=== PATIENT | female | born 1970 | race Caucasian/White ===

== ENCOUNTER 2017-06-20 18:49 | Emergency (ER) | payer MEDICARE ==
[~2017-06-20] VITALS: Ht 167.6 cm; Wt 88.6 kg
[~2017-06-20 18:49] MED LIST: ACE INHIBITOR; ACID1TAB7 PO; ASPI-515 PO; CETI10CA PO; CLOP75TA52 PO; DRON5CAP15 PO; FLUC200T4 PO; INSU100C SQ-INSULIN; INSU100V8 SQ; KRILL OIL; METO10TA2 PO; METO25TA35 PO; METO5TAB57 PO; OXYC5SOL8 PO; PROBIOTIC; SULF-169 PO; SULF20OR7 PO; TRAM50TA2 PO; VANC1VIA3 PO
[2017-06-20 20:11] LABS: ASPARTATE AMINO TRANSFERASE 12 U/L (15-37); BLOOD UREA NITROGEN 32 mg/dL (7-18)
[2017-06-20 20:17] LABS: HEMATOCRIT 36.6 % (34.6-47.8); HEMOGLOBIN 12.2 g/dL (11.7-16.4); WHITE BLOOD COUNT 9.2 x10^3/uL (3.4-10)
[2017-06-20] MEDS ORDERED: NITROFURANTOIN (MACROBID) 100 MG CAPSULE PO ONE (21:00)
[2017-06-20] MEDS ORDERED: SODIUM CHLORIDE 0.9% 1,000ML IVBOLUS ONE (21:00)
[2017-06-20 23:02] VITALS: BP 151/84
== END 2017-06-20 23:37 | disposition home or self-care (01) ==
LOC: ED 22:52
DX: K58.0 Irritable bowel syndrome with diarrhea (principal); N30.00 Acute cystitis without hematuria; N28.9 Disorder of kidney and ureter, unspecified; E10.65 Type 1 diabetes mellitus with hyperglycemia; E10.40 Type 1 diabetes mellitus with diabetic neuropathy, unspecified; E10.21 Type 1 diabetes mellitus with diabetic nephropathy; I10 Essential (primary) hypertension
CPT/HCPCS: 36415; 80053; 81001; 82962; 85025; 87077; 87086; 87186; 96360; 96361; 99285; J7030

== ENCOUNTER 2017-09-19 18:54 | Emergency (ER) | payer MEDICARE ==
[~2017-09-19] VITALS: Ht 177.8 cm; Wt 75.0 kg
[2017-09-19] MEDS ORDERED: ONDANSETRON 2MG/ML, 2ML ONE (19:24)
[2017-09-19] MEDS ORDERED: MORPHINE SULFATE 4 MG/ML, 1ML ONE (19:24)
[2017-09-19 19:28] LABS: HEMATOCRIT 36.7 % (34.6-47.8); WHITE BLOOD COUNT 7.3 x10^3/uL (3.4-10)
[2017-09-19] MEDS ORDERED: MORPHINE SULFATE 4 MG/ML, 1ML IVPush PRN (19:30)
[2017-09-19] MEDS ORDERED: SODIUM CHLORIDE 0.9% 1,000ML IVBOLUS ONE (19:30)
[2017-09-19] MEDS ORDERED: ONDANSETRON 2MG/ML, 2ML IVPush ONE (19:30)
[2017-09-19] MEDS ORDERED: SODIUM CHLORIDE FLUSH 10ML SYR IVF ONE (19:30)
[2017-09-19 19:38] LABS: ASPARTATE AMINO TRANSFERASE 13 U/L (15-37); BLOOD UREA NITROGEN 44 mg/dL (7-18)
[2017-09-19 22:37] VITALS: BP 164/89
== END 2017-09-20 00:18 | disposition home or self-care (01) ==
LOC: ED 21:11
DX: K58.0 Irritable bowel syndrome with diarrhea (principal); R93.5 Abnormal findings on diagnostic imaging of other abdominal regions, including retroperitoneum
CPT/HCPCS: 36415; 74020; 74176; 80053; 81001; 83690; 84703; 85025; 87324; 89055; 96361; 96374; 96375; 99285; J2405; J7030

== ENCOUNTER → 2017-11-02 | Outpatient (CLI) | payer MEDICARE ==
[~2017-11-02] MED LIST changes: +IRON15TA3 PO
== END ==
LOC: PETCFH 08:10
PROVIDERS: ATTEND Internal Medicine
DX: R11.0 Nausea (principal)
CPT/HCPCS: 78264; A9541

== ENCOUNTER 2017-11-10 00:25 | Emergency (ER) | payer MEDICARE ==
[~2017-11-10] VITALS: Ht 162.6 cm; Wt 86.0 kg
[2017-11-10] MEDS ORDERED: HALOPERIDOL 5 MG/ML ONE (00:49)
[2017-11-10] MEDS ORDERED: METOCLOPRAMIDE 5 MG/ML, 2ML ONE (00:50)
[2017-11-10] MEDS ORDERED: DIPHENHYDRAMINE 50 MG/ML, 1ML ONE (00:50)
[2017-11-10 00:52] LABS: BASOPHILS # (AUTO) 0.07 x10^3/uL (0-0.1); BASOPHILS % (AUTO) 1 % (0-1); EOSINOPHILS # (AUTO) 0.41 x10^3/uL (0-0.4); EOSINOPHILS % (AUTO) 4 % (1-7); LYMPHOCYTES # (AUTO) 1.46 x10^3/uL (1-3.4); LYMPHOCYTES % (AUTO) 14 % (22-44); MD NO; MEAN CORPUSCULAR HEMOGLOBIN 27.7 pg (27.0-34.8); MEAN CORPUSCULAR HGB CONC 33.2 g/dL (32.4-35.8); MEAN CORPUSCULAR VOLUME 83.6 fL (80-100); MEAN PLATELET VOLUME 7.9 fL (7.4-10.4); MONOCYTES # (AUTO) 0.43 x10^3/uL (0.2-0.8); MONOCYTES % (AUTO) 4 % (2-9); NEUTROPHILS # (AUTO) 8.45 x10^3/uL (1.8-6.8); NEUTROPHILS % (AUTO) 78 % (42-75); PLATELET COUNT 301 x10^3/uL (130-400); RED BLOOD COUNT 4.05 x10^6/uL (3.82-5.3); RED CELL DISTRIBUTION WIDTH 13.1 % (9.6-15.2)
[2017-11-10] MEDS ORDERED: METOCLOPRAMIDE 5 MG/ML, 2ML IVPush ONE (01:00)
[2017-11-10] MEDS ORDERED: SODIUM CHLORIDE FLUSH 10ML SYR IVF ONE (01:00)
[2017-11-10] MEDS ORDERED: DIPHENHYDRAMINE 50 MG/ML, 1ML IVPush ONE (01:00)
[2017-11-10] MEDS ORDERED: SODIUM CHLORIDE 0.9% 1,000ML IVBOLUS ONE (01:00)
[2017-11-10] MEDS ORDERED: HALOPERIDOL 5 MG/ML IV ONE (01:00)
[2017-11-10 01:04] LABS: ALANINE AMINOTRANSFERASE 17 U/L (12-78); ALBUMIN 2.7 g/dL (3.4-5.0); ANION GAP 11 mmol/L (5-15); CALCIUM 7.9 mg/dL (8.5-10.1); CHLORIDE 110 mmol/L (98-107); CREATININE 1.36 mg/dL (0.55-1.02)
[2017-11-10 01:07] LABS: ALKALINE PHOSPHATASE 122 U/L (45-117); BILIRUBIN,TOTAL 0.1 mg/dL (0.2-1.0); TOTAL PROTEIN 6.9 g/dL (6.4-8.2)
[2017-11-10 03:59] VITALS: BP 157/82
== END 2017-11-10 04:01 | disposition home or self-care (01) ==
LOC: ED 00:28
DX: K31.84 Gastroparesis (principal); E86.0 Dehydration; I25.10 Atherosclerotic heart disease of native coronary artery without angina pectoris; I10 Essential (primary) hypertension; I25.2 Old myocardial infarction; Z86.73 Personal history of transient ischemic attack (TIA), and cerebral infarction without residual deficits; Z91.040 Latex allergy status
CPT/HCPCS: 36415; 80053; 83690; 85025; 96361; 96374; 96375; 99285; J1200; J1630; J2765; J7030

== ENCOUNTER 2018-02-08 00:31 | Inpatient (IN) | payer MEDICARE, MEDICAID ==
[~2018-02-08] VITALS: Ht 157.5 cm; Wt 87.0 kg
[~2018-02-08 00:31] MED LIST changes: +INSU100C5 SQ-INSULIN
[2018-02-08 00:54] LABS: BASOPHILS # (AUTO) 0.05 x10^3/uL (0-0.1); BASOPHILS % (AUTO) 1 % (0-1); EOSINOPHILS # (AUTO) 1.09 x10^3/uL (0-0.4); EOSINOPHILS % (AUTO) 11 % (1-7); LYMPHOCYTES # (AUTO) 1.45 x10^3/uL (1-3.4); LYMPHOCYTES % (AUTO) 15 % (22-44); MD NO; MEAN CORPUSCULAR HEMOGLOBIN 27.7 pg (27.0-34.8); MEAN CORPUSCULAR HGB CONC 32.9 g/dL (32.4-35.8); MEAN CORPUSCULAR VOLUME 84.3 fL (80-100); MEAN PLATELET VOLUME 8.1 fL (7.4-10.4); MONOCYTES # (AUTO) 0.56 x10^3/uL (0.2-0.8); MONOCYTES % (AUTO) 6 % (2-9); NEUTROPHILS % (AUTO) 69 % (42-75); PLATELET COUNT 286 x10^3/uL (130-400); RED BLOOD COUNT 3.86 x10^6/uL (3.82-5.3); RED CELL DISTRIBUTION WIDTH 14.1 % (9.6-15.2)
[2018-02-08] MEDS ORDERED: KETOROLAC 30 MG/1 ML IVPush ONE (01:00)
[2018-02-08] MEDS ORDERED: PROMETHAZINE 25 MG/ML, 1ML IM ONE (01:00)
[2018-02-08] MEDS ORDERED: SODIUM CHLORIDE FLUSH 10ML SYR IVF ONE (01:00)
[2018-02-08] MEDS ORDERED: SODIUM CHLORIDE 0.9% 1,000ML IVBOLUS ONE ×2 (01:00→05:00)
[2018-02-08 01:06] LABS: ALANINE AMINOTRANSFERASE 18 U/L (12-78); ALBUMIN 2.5 g/dL (3.4-5.0); ANION GAP 10 mmol/L (5-15); CHLORIDE 115 mmol/L (98-107); CREATININE 1.76 mg/dL (0.55-1.02)
[2018-02-08 01:11] LABS: ALKALINE PHOSPHATASE 125 U/L (45-117); BILIRUBIN,TOTAL 0.2 mg/dL (0.2-1.0); TOTAL PROTEIN 6.4 g/dL (6.4-8.2)
[2018-02-08] MEDS ORDERED: KETOROLAC 30 MG/1 ML ONE (02:22)
[2018-02-08] MEDS ORDERED: PROMETHAZINE 25 MG/ML, 1ML ONE (02:22)
[2018-02-08 03:43] VITALS: BP 132/75
[2018-02-08] MEDS ORDERED: DEXTROSE 4 GM TAB.CHEW PO PRN (05:00)
[2018-02-08] MEDS ORDERED: morphine SULFATE 10 MG/ML, 1ML IVPush PRN (05:00)
[2018-02-08] MEDS ORDERED: LABETALOL 5MG/ML, 20ML IVPush PRN (05:00)
[2018-02-08] MEDS ORDERED: GLUCAGON 1 MG IM PRN (05:00)
[2018-02-08] MEDS ORDERED: DEXTROSE 50%, 50ML SYRINGE IVPush PRN (05:00)
[2018-02-08] MEDS ORDERED: ONDANSETRON ODT 4 MG PO PRN (05:00)
[2018-02-08] MEDS ORDERED: DIPHENHYDRAMINE 25 MG CAPSULE PO PRN (05:00)
[2018-02-08 06:19] LABS: CHLORIDE 115 mmol/L (98-107)
[2018-02-08 06:20] LABS: ACETONE, SERUM Negative (Negative)
[2018-02-08 06:22] LABS: HEMOGLOBIN A1C 7.2 % (4.2-6.3)
[2018-02-08 06:30] LABS: CALCIUM 7.5 mg/dL (8.5-10.1); CREATININE 1.72 mg/dL (0.55-1.02)
[2018-02-08 06:38] LABS: ANION GAP 10 mmol/L (5-15)
[2018-02-08 06:53] VITALS: BP 114/72
[2018-02-08] MEDS: INSULIN LISPRO 100 UNITS/ML, PEN SQ-INSULIN SCH ×4 (07:00→20:38)
[2018-02-08] MEDS: IRON CARBONYL PO SCH (09:00)
[2018-02-08] MEDS: SODIUM CHLORIDE 0.9% 1,000 ML IV SCH ×3 (09:06→22:29)
[2018-02-08] MEDS: ASPIRIN 81 MG TABLET EC PO SCH (09:06)
[2018-02-08] MEDS: HEPARIN 5,000 UNITS/ML, 1ML SQ SCH ×2 (09:06→17:03)
[2018-02-08] MEDS: SODIUM CHLORIDE FLUSH 10ML SYR IVF SCH ×2 (09:07→20:38)
[2018-02-08 11:14] LABS: CULTURE INDICATED? YES; MICROSCOPIC INDICATED
[2018-02-08 11:49] LABS: ANION GAP 10 mmol/L (5-15); CALCIUM 7.4 mg/dL (8.5-10.1); CHLORIDE 118 mmol/L (98-107); CREATININE 1.64 mg/dL (0.55-1.02)
[2018-02-08 12:36] VITALS: BP 159/81
[2018-02-08] MEDS: HYDROcodone/APAP 5/325 TABLET PO PRN (20:38)
[2018-02-08] MEDS: CHOLESTYRAMINE LIGHT 4GM PACKET PO SCH (20:38)
[2018-02-08] MEDS ORDERED: INSULIN GLARGINE 100 UNITS/ML, PEN SQ-INSULIN SCH (21:00)
[2018-02-08 21:19] VITALS: BP 157/83
[2018-02-08] MEDS ORDERED: POLYETHYLENE GLYCOL 17 GM PACKET PO PRN (21:30)
[2018-02-08] MEDS: NYSTATIN CRM 15GM TP SCH (22:29)
[2018-02-08] MEDS: DOCUSATE 100 MG CAPSULE PO SCH (22:29)
[2018-02-09 00:23] VITALS: BP 141/83
[2018-02-09] MEDS: HEPARIN 5,000 UNITS/ML, 1ML SQ SCH ×3 (01:16→17:00)
[2018-02-09] MEDS: HYDROcodone/APAP 5/325 TABLET PO PRN ×2 (01:16→09:11)
[2018-02-09] MEDS: SODIUM CHLORIDE 0.9% 1,000 ML IV SCH (05:15)
[2018-02-09 05:54] LABS: ANION GAP 7 mmol/L (5-15); CALCIUM 7.6 mg/dL (8.5-10.1); CHLORIDE 122 mmol/L (98-107)
[2018-02-09 05:57] LABS: CREATININE 1.36 mg/dL (0.55-1.02)
[2018-02-09 06:17] LABS: ALBUMIN 2.2 g/dL (3.4-5.0)
[2018-02-09 06:20] LABS: BILIRUBIN,TOTAL 0.2 mg/dL (0.2-1.0); TOTAL PROTEIN 5.6 g/dL (6.4-8.2)
[2018-02-09 06:22] LABS: ALANINE AMINOTRANSFERASE 14 U/L (12-78); ALKALINE PHOSPHATASE 100 U/L (45-117)
[2018-02-09] MEDS: INSULIN LISPRO 100 UNITS/ML, PEN SQ-INSULIN SCH ×3 (07:00→16:00)
[2018-02-09] MEDS ORDERED: FLUCONAZOLE 100 MG TABLET PO ONE (07:30)
[2018-02-09 07:52] VITALS: BP 143/80
[2018-02-09] MEDS: IRON CARBONYL PO SCH (09:00)
[2018-02-09] MEDS: CHOLESTYRAMINE LIGHT 4GM PACKET PO SCH (09:10)
[2018-02-09] MEDS: NYSTATIN CRM 15GM TP SCH ×2 (09:10→16:00)
[2018-02-09] MEDS: DOCUSATE 100 MG CAPSULE PO SCH (09:11)
[2018-02-09] MEDS: ASPIRIN 81 MG TABLET EC PO SCH (09:11)
[2018-02-09] MEDS: SODIUM CHLORIDE FLUSH 10ML SYR IVF SCH (09:11)
[2018-02-09] MEDS ORDERED: NITROFURANTOIN (MACROBID) 100 MG CAPSULE PO SCH (12:00)
[2018-02-09 12:26] VITALS: BP 143/83
== END 2018-02-09 18:14 | disposition home or self-care (01) | DRG 682 ==
LOC: ED 01:10 → EDIP 02:23 → 4EST 03:34
PROVIDERS: ADMIT Family Medicine; ATTEND Family Medicine
DX: N17.0 Acute kidney failure with tubular necrosis (principal); E43 Unspecified severe protein-calorie malnutrition; K31.84 Gastroparesis; E10.43 Type 1 diabetes mellitus with diabetic autonomic (poly)neuropathy; I11.0 Hypertensive heart disease with heart failure; I50.9 Heart failure, unspecified; E86.0 Dehydration; I69.354 Hemiplegia and hemiparesis following cerebral infarction affecting left non-dominant side; N39.0 Urinary tract infection, site not specified; E10.65 Type 1 diabetes mellitus with hyperglycemia; D64.9 Anemia, unspecified; I25.10 Atherosclerotic heart disease of native coronary artery without angina pectoris; N80.9 Endometriosis, unspecified; R33.9 Retention of urine, unspecified; R19.00 Intra-abdominal and pelvic swelling, mass and lump, unspecified site; I25.2 Old myocardial infarction; Z79.4 Long term (current) use of insulin; Z86.14 Personal history of Methicillin resistant Staphylococcus aureus infection; Z89.429 Acquired absence of other toe(s), unspecified side; Z90.49 Acquired absence of other specified parts of digestive tract; Z80.0 Family history of malignant neoplasm of digestive organs
CPT/HCPCS: 36415; 76857; 80048; 80053; 81001; 82010; 82962; 83036; 83690; 83735; 84100; 84443; 84702; 84703; 85025; 87086; 99285; J1644; J1815; J7030

== ENCOUNTER 2018-02-15 02:36 | Emergency (ER) | payer MEDICARE, MEDICAID ==
[~2018-02-15] VITALS: Ht 177.8 cm; Wt 78.0 kg
[2018-02-15 03:16] LABS: BASOPHILS # (AUTO) 0.15 x10^3/uL (0-0.1); BASOPHILS % (AUTO) 2 % (0-1); EOSINOPHILS # (AUTO) 0.77 x10^3/uL (0-0.4); EOSINOPHILS % (AUTO) 9 % (1-7); LYMPHOCYTES # (AUTO) 1.57 x10^3/uL (1-3.4); LYMPHOCYTES % (AUTO) 19 % (22-44); MD NO; MEAN CORPUSCULAR HEMOGLOBIN 28.4 pg (27.0-34.8); MEAN CORPUSCULAR HGB CONC 33.5 g/dL (32.4-35.8); MEAN CORPUSCULAR VOLUME 84.5 fL (80-100); MEAN PLATELET VOLUME 8.5 fL (7.4-10.4); MONOCYTES # (AUTO) 0.36 x10^3/uL (0.2-0.8); MONOCYTES % (AUTO) 4 % (2-9); NEUTROPHILS % (AUTO) 65 % (42-75); PLATELET COUNT 282 x10^3/uL (130-400); RED BLOOD COUNT 3.77 x10^6/uL (3.82-5.3); RED CELL DISTRIBUTION WIDTH 14.2 % (9.6-15.2)
[2018-02-15 03:27] LABS: ALANINE AMINOTRANSFERASE 20 U/L (12-78); ALBUMIN 2.4 g/dL (3.4-5.0); ANION GAP 12 mmol/L (5-15); CHLORIDE 114 mmol/L (98-107); CREATININE 1.51 mg/dL (0.55-1.02)
[2018-02-15 03:29] LABS: ALKALINE PHOSPHATASE 132 U/L (45-117); BILIRUBIN,TOTAL 0.2 mg/dL (0.2-1.0); TOTAL PROTEIN 6.4 g/dL (6.4-8.2)
[2018-02-15 04:45] LABS: MICROSCOPIC INDICATED
[2018-02-15 04:50] LABS: CULTURE INDICATED? NO
[2018-02-15 05:04] LABS: OCCULT BLOOD NEGATIVE (NEGATIVE)
[2018-02-15 05:13] LABS: CLOSTRIDIUM DIFFICILE ANTIGEN NEGATIVE; CLOSTRIDIUM DIFFICILE TOXIN NEGATIVE (Negative)
[2018-02-15 06:53] VITALS: BP 161/89
== END 2018-02-15 07:42 | disposition home or self-care (01) ==
LOC: ED 05:33
DX: I12.9 Hypertensive chronic kidney disease with stage 1 through stage 4 chronic kidney disease, or unspecified chronic kidney disease (principal); E11.22 Type 2 diabetes mellitus with diabetic chronic kidney disease; N18.9 Chronic kidney disease, unspecified; R19.00 Intra-abdominal and pelvic swelling, mass and lump, unspecified site; I25.10 Atherosclerotic heart disease of native coronary artery without angina pectoris; I25.2 Old myocardial infarction; Z86.73 Personal history of transient ischemic attack (TIA), and cerebral infarction without residual deficits
CPT/HCPCS: 36415; 80053; 81001; 82272; 83690; 85025; 87324; 93005; 99285

== ENCOUNTER → 2018-03-25 | Outpatient (CLI) | payer MEDICAID, MEDICARE ==
[~2018-03-25] MED LIST changes: +INSU100V13 SC
[2018-03-25 12:04] LABS: BASOPHILS # (AUTO) 0.04 x10^3/uL (0-0.1); BASOPHILS % (AUTO) 1 % (0-1); EOSINOPHILS # (AUTO) 0.47 x10^3/uL (0-0.4); EOSINOPHILS % (AUTO) 6 % (1-7); LYMPHOCYTES # (AUTO) 1.76 x10^3/uL (1-3.4); LYMPHOCYTES % (AUTO) 23 % (22-44); MD NO; MEAN CORPUSCULAR HGB CONC 33.2 g/dL (32.4-35.8); MEAN CORPUSCULAR VOLUME 84.2 fL (80-100); MEAN PLATELET VOLUME 8.6 fL (7.4-10.4); MONOCYTES # (AUTO) 0.47 x10^3/uL (0.2-0.8); MONOCYTES % (AUTO) 6 % (2-9); NEUTROPHILS # (AUTO) 4.93 x10^3/uL (1.8-6.8); NEUTROPHILS % (AUTO) 64 % (42-75); PLATELET COUNT 291 x10^3/uL (130-400); RED BLOOD COUNT 4.19 x10^6/uL (3.82-5.3); RED CELL DISTRIBUTION WIDTH 13.4 % (9.6-15.2)
[2018-03-25 12:11] LABS: INTERNATIONAL NORMALIZED RATIO 0.94 (0.93-1.1); PROTHROMBIN TIME 9.7 Seconds (9.6-11.5)
[2018-03-25 12:15] LABS: ALBUMIN 2.9 g/dL (3.4-5.0); ANION GAP 7 mmol/L (5-15); CALCIUM 8.6 mg/dL (8.5-10.1); CHLORIDE 110 mmol/L (98-107)
[2018-03-25 12:21] LABS: ALANINE AMINOTRANSFERASE 19 U/L (12-78); ALKALINE PHOSPHATASE 134 U/L (45-117); BILIRUBIN,TOTAL 0.3 mg/dL (0.2-1.0); CREATININE 1.81 mg/dL (0.55-1.02); TOTAL PROTEIN 7.5 g/dL (6.4-8.2)
== END | disposition home or self-care (01) ==
LOC: STAR 10:54
PROVIDERS: ATTEND Specialist
DX: Z01.818 Encounter for other preprocedural examination (principal); N83.00 Follicular cyst of ovary, unspecified side
CPT/HCPCS: 36415; 71046; 80053; 84703; 85025; 85610; 85730

== ENCOUNTER 2018-03-29 10:52 | Inpatient (IN) | payer MEDICAID, MEDICARE ==
[~2018-03-29] VITALS: Ht 175.3 cm; Wt 91.4 kg
[2018-03-29] MEDS ORDERED: LACTATED RINGERS 1,000 ML IV SCH (11:41)
[2018-03-29] MEDS ORDERED: ACETAMINOPHEN 500 MG TABLET PO ONE (12:00)
[2018-03-29] MEDS ORDERED: OxyconTIN ER 10 MG TAB.ER PO ONE (12:00)
[2018-03-29] MEDS ORDERED: ONDANSETRON ODT 8 MG PO ONE (12:00)
[2018-03-29] MEDS: GABAPENTIN 300 MG CAPSULE PO ONE (12:40)
[2018-03-29] MEDS ORDERED: FENTANYL PF 250 MCG/5ML ONE ×2 (13:07→14:41)
[2018-03-29] MEDS ORDERED: MIDAZOLAM 1 MG/ML, 2ML ONE (13:07)
[2018-03-29] MEDS ORDERED: PHENYLEPHRINE 10 MG/ML ONE (13:10)
[2018-03-29] MEDS ORDERED: ROCURONIUM 10MG/ML,5ML ONE ×2 (13:10→14:40)
[2018-03-29] MEDS ORDERED: LIDOCAINE 2% 100MG/5ML SYRINGE ONE (13:10)
[2018-03-29] MEDS ORDERED: CEFOTETAN PMX 2GM/50ML 50 ML ONE (13:10)
[2018-03-29] MEDS ORDERED: PROPOFOL 10 MG/ML, 20ML ONE (13:10)
[2018-03-29] MEDS ORDERED: BUPIVACAINE/PF 0.25% ONE ×3 (17:43→18:52)
[2018-03-29] MEDS ORDERED: EPINEPHRINE 1 MG/ML, 1ML ONE (17:43)
[2018-03-29] MEDS ORDERED: LABETALOL 5MG/ML 40ML VIAL ONE (17:48)
[2018-03-29] MEDS ORDERED: DEXAMETHASONE 4 MG/ML, 1ML ONE (17:48)
[2018-03-29] MEDS ORDERED: FENTANYL PF 100 MCG/2ML ONE ×2 (18:41→20:11)
[2018-03-29] MEDS ORDERED: OXYcodone 5 MG/5 ML ORAL.SOL UDC PO PRN (20:00)
[2018-03-29] MEDS ORDERED: HYDROmorphone 1 MG/ML, 1ML IV PRN (20:00)
[2018-03-29] MEDS ORDERED: MEPERIDINE/PF 25MG/0.5ML IVPush PRN (20:00)
[2018-03-29] MEDS ORDERED: HALOPERIDOL 5 MG/ML IV PRN (20:00)
[2018-03-29] MEDS ORDERED: OXYcodone/APAP 5/325MG TABLET PO PRN (20:00)
[2018-03-29] MEDS ORDERED: LACTATED RINGERS 500 ML IVBOLUS ONE (20:00)
[2018-03-29] MEDS ORDERED: hydrALAzine 20 MG/ML, 1ML IV PRN (20:00)
[2018-03-29] MEDS ORDERED: PROMETHAZINE 25 MG/ML, 1ML IV PRN (20:00)
[2018-03-29] MEDS ORDERED: LORazepam 2 MG/ML, 1ML IVPush PRN (20:00)
[2018-03-29] MEDS ORDERED: ONDANSETRON 2MG/ML, 2ML IVPush PRN (20:00)
[2018-03-29] MEDS ORDERED: LABETALOL 5MG/ML, 20ML IV PRN (20:00)
[2018-03-29] MEDS ORDERED: hydrALAzine 20 MG/ML, 1ML ONE (20:01)
[2018-03-29] MEDS ORDERED: OXYcodone 5 MG/5 ML ORAL.SOL UDC ONE (20:12)
[2018-03-29] MEDS: FENTANYL PF 100 MCG/2ML IV PRN ×2 (20:13→20:33)
[2018-03-29] MEDS ORDERED: INSULIN GLARGINE 100 UNITS/ML, PEN SQ-INSULIN SCH (21:00)
[2018-03-30 00:08] VITALS: BP 125/71
[2018-03-30 04:23] VITALS: BP 122/81
[2018-03-30 05:04] LABS: BASOPHILS # (AUTO) 0.07 x10^3/uL (0-0.1); BASOPHILS % (AUTO) 1 % (0-1); EOSINOPHILS # (AUTO) 0.01 x10^3/uL (0-0.4); EOSINOPHILS % (AUTO) 0 % (1-7); LYMPHOCYTES # (AUTO) 0.54 x10^3/uL (1-3.4); LYMPHOCYTES % (AUTO) 4 % (22-44); MD NO; MEAN CORPUSCULAR HEMOGLOBIN 27.8 pg (27.0-34.8); MEAN CORPUSCULAR HGB CONC 32.9 g/dL (32.4-35.8); MEAN CORPUSCULAR VOLUME 84.6 fL (80-100); MEAN PLATELET VOLUME 8.7 fL (7.4-10.4); MONOCYTES # (AUTO) 0.52 x10^3/uL (0.2-0.8); MONOCYTES % (AUTO) 4 % (2-9); NEUTROPHILS % (AUTO) 92 % (42-75); PLATELET COUNT 274 x10^3/uL (130-400); RED BLOOD COUNT 4.04 x10^6/uL (3.82-5.3); RED CELL DISTRIBUTION WIDTH 13.2 % (9.6-15.2)
[2018-03-30 05:12] LABS: ANION GAP 11 mmol/L (5-15); CHLORIDE 109 mmol/L (98-107); CREATININE 1.99 mg/dL (0.55-1.02)
[2018-03-30] MEDS ORDERED: SODIUM CHLORIDE 0.9% 1,000ML IVBOLUS ONE (06:30)
[2018-03-30] MEDS: ASPIRIN 81 MG TABLET EC PO SCH (07:26)
[2018-03-30] MEDS: INSULIN LISPRO 100 UNITS/ML, PEN SQ-INSULIN SCH ×3 (07:27→17:37)
[2018-03-30 08:02] VITALS: BP 114/69
[2018-03-30] MEDS ORDERED: SODIUM CHLORIDE 0.9% 1,000 ML IV SCH (10:30)
[2018-03-30] MEDS: SODIUM CHLORIDE 0.9% 1,000 ML IV SCH ×2 (10:32→12:30)
[2018-03-30 14:21] VITALS: BP 128/69
[2018-03-30] MEDS ORDERED: SODIUM CHLORIDE 0.9% 1,000 ML IV ONE (17:00)
[2018-03-30 21:01] VITALS: BP 117/72
[2018-03-30] MEDS: INSULIN GLARGINE 100 UNITS/ML, PEN SQ-INSULIN SCH (21:37)
[2018-03-31 03:49] VITALS: BP 97/59
[2018-03-31 05:33] LABS: ANION GAP 5 mmol/L (5-15); CALCIUM 6.9 mg/dL (8.5-10.1); CHLORIDE 111 mmol/L (98-107); CREATININE 2.13 mg/dL (0.55-1.02)
[2018-03-31 07:00] VITALS: BP 117/76
[2018-03-31] MEDS: ASPIRIN 81 MG TABLET EC PO SCH (08:29)
[2018-03-31] MEDS: INSULIN LISPRO 100 UNITS/ML, PEN SQ-INSULIN SCH ×3 (08:30→16:00)
[2018-03-31 13:56] VITALS: BP 109/65
[2018-03-31 20:27] VITALS: BP 106/66
[2018-03-31] MEDS: INSULIN GLARGINE 100 UNITS/ML, PEN SQ-INSULIN SCH (21:28)
[2018-04-01 02:00] VITALS: BP 110/60
[2018-04-01 05:32] LABS: ANION GAP 6 mmol/L (5-15); CALCIUM 7.7 mg/dL (8.5-10.1); CHLORIDE 113 mmol/L (98-107)
[2018-04-01 05:33] LABS: CREATININE 1.84 mg/dL (0.55-1.02)
[2018-04-01] MEDS: INSULIN LISPRO 100 UNITS/ML, PEN SQ-INSULIN SCH ×3 (07:00→14:58)
[2018-04-01] MEDS: ASPIRIN 81 MG TABLET EC PO SCH (07:53)
[2018-04-01 08:37] VITALS: BP 133/85
[2018-04-01 14:47] VITALS: BP 143/94
== END 2018-04-01 16:20 | disposition home or self-care (01) | DRG 742 ==
LOC: OUT 10:52 → ORIP 20:25 → 4NOR 21:20 → OBSVTOIN 03-30 15:42
PROVIDERS: ADMIT Specialist; ATTEND Specialist
PROC: 0UT7FZZ Resection of Bilateral Fallopian Tubes, Via Natural or Artificial Opening With Percutaneous Endoscopic Assistance (ICD-10-PCS; 2018-03-29)
PROC: 0UT2FZZ Resection of Bilateral Ovaries, Via Natural or Artificial Opening With Percutaneous Endoscopic Assistance (ICD-10-PCS; 2018-03-29)
PROC: 8E0W4CZ Robotic Assisted Procedure of Trunk Region, Percutaneous Endoscopic Approach (ICD-10-PCS; 2018-03-29)
PROC: 0UT9FZZ Resection of Uterus, Via Natural or Artificial Opening With Percutaneous Endoscopic Assistance (ICD-10-PCS; principal; 2018-03-29 16:00)
DX: D27.0 Benign neoplasm of right ovary (principal); N17.0 Acute kidney failure with tubular necrosis; I13.0 Hypertensive heart and chronic kidney disease with heart failure and stage 1 through stage 4 chronic kidney disease, or unspecified chronic kidney disease; I69.354 Hemiplegia and hemiparesis following cerebral infarction affecting left non-dominant side; K31.84 Gastroparesis; E10.43 Type 1 diabetes mellitus with diabetic autonomic (poly)neuropathy; E10.42 Type 1 diabetes mellitus with diabetic polyneuropathy; E10.22 Type 1 diabetes mellitus with diabetic chronic kidney disease; N18.3 Chronic kidney disease, stage 3 (moderate); I50.9 Heart failure, unspecified; M06.9 Rheumatoid arthritis, unspecified; N83.9 Noninflammatory disorder of ovary, fallopian tube and broad ligament, unspecified; Z79.4 Long term (current) use of insulin; Z86.14 Personal history of Methicillin resistant Staphylococcus aureus infection; Z99.3 Dependence on wheelchair; Z91.018 Allergy to other foods; Z91.012 Allergy to eggs; Z91.040 Latex allergy status; Z88.8 Allergy status to other drugs, medicaments and biological substances
CPT/HCPCS: 36415; 76770; 80048; 82962; 85025; 86850; 86900; 86923; 88112; 88305; 88307; 88331; G0378; J0171; J1100; J2250; J2704; J3010; J3490; J7120; Q0162; J0360; J1815; J2370; J7030; S0074

== ENCOUNTER 2018-04-06 03:27 | Emergency (ER) | payer MEDICARE ==
[~2018-04-06] VITALS: Ht 177.8 cm; Wt 90.0 kg
[2018-04-06] MEDS ORDERED: SODIUM CHLORIDE FLUSH 10ML SYR IVF ONE (04:00)
[2018-04-06] MEDS ORDERED: SODIUM CHLORIDE 0.9% 1,000ML IVBOLUS ONE (04:00)
[2018-04-06 04:07] LABS: BASOPHILS # (AUTO) 0.03 x10^3/uL (0-0.1); BASOPHILS % (AUTO) 0 % (0-1); EOSINOPHILS % (AUTO) 7 % (1-7); LYMPHOCYTES # (AUTO) 0.91 x10^3/uL (1-3.4); LYMPHOCYTES % (AUTO) 12 % (22-44); MD NO; MEAN CORPUSCULAR HEMOGLOBIN 28.3 pg (27.0-34.8); MEAN CORPUSCULAR HGB CONC 33.4 g/dL (32.4-35.8); MEAN CORPUSCULAR VOLUME 84.7 fL (80-100); MEAN PLATELET VOLUME 8.2 fL (7.4-10.4); MONOCYTES # (AUTO) 0.57 x10^3/uL (0.2-0.8); MONOCYTES % (AUTO) 8 % (2-9); NEUTROPHILS # (AUTO) 5.44 x10^3/uL (1.8-6.8); NEUTROPHILS % (AUTO) 73 % (42-75); PLATELET COUNT 295 x10^3/uL (130-400); RED BLOOD COUNT 3.51 x10^6/uL (3.82-5.3); RED CELL DISTRIBUTION WIDTH 13.1 % (9.6-15.2)
[2018-04-06 04:19] LABS: ALANINE AMINOTRANSFERASE 15 U/L (12-78); ALBUMIN 2.1 g/dL (3.4-5.0); ANION GAP 8 mmol/L (5-15); CHLORIDE 111 mmol/L (98-107); CREATININE 1.56 mg/dL (0.55-1.02)
[2018-04-06 04:21] LABS: ALKALINE PHOSPHATASE 120 U/L (45-117); BILIRUBIN,TOTAL 0.2 mg/dL (0.2-1.0); TOTAL PROTEIN 6.2 g/dL (6.4-8.2)
[2018-04-06 04:42] LABS: MICROSCOPIC INDICATED
[2018-04-06 04:59] LABS: CULTURE INDICATED? YES
[2018-04-06] MEDS ORDERED: OMNIPAQUE 350 MG/ML, 100ML BOTTLE ONE (05:19)
[2018-04-06 05:56] VITALS: BP 154/86
== END 2018-04-06 06:56 | disposition home or self-care (01) ==
LOC: ED 03:54
DX: D64.9 Anemia, unspecified (principal); I12.9 Hypertensive chronic kidney disease with stage 1 through stage 4 chronic kidney disease, or unspecified chronic kidney disease; N18.9 Chronic kidney disease, unspecified; E11.65 Type 2 diabetes mellitus with hyperglycemia; E11.22 Type 2 diabetes mellitus with diabetic chronic kidney disease; R11.2 Nausea with vomiting, unspecified; R10.9 Unspecified abdominal pain; I25.2 Old myocardial infarction; I25.10 Atherosclerotic heart disease of native coronary artery without angina pectoris; Z86.73 Personal history of transient ischemic attack (TIA), and cerebral infarction without residual deficits
CPT/HCPCS: 36415; 74177; 80053; 81001; 83690; 85025; 87077; 87086; 93005; 99285; J7030; Q9967; 87186